=== PATIENT | female | born 1960 | race Caucasian/White ===

== ENCOUNTER → 2017-03-15 | Outpatient (CLI) | payer OTHER ==
--- NOTE | 2017-03-15 17:03 | REP ---
Clinical: Trauma. Fall. Technique: Neutral and frog lateral views of the right hip. Findings: No acute fracture or dislocation. Skeletal structures, joint spaces, and surrounding soft tissues are normal for age. Impression: No acute fracture or dislocation. Signed by Sergio Sanders MD 03/15/2017 04:54 P
--- NOTE | 2017-03-15 17:05 | REP ---
Clinical: Trauma. Fall. Technique: AP, lateral, bilateral oblique and sunrise views of the right knee. Findings: Early moderate tricompartmental degenerative changes include cortical irregularities to the femoral condyles, subtle spurring/early osteophyte formation, subchondral sclerosis. Lateral and sunrise views demonstrate sclerosis along the posterior margin of the patella with lateral spurring. No acute fracture dislocation. No obvious effusion. Impression: Early moderate tricompartmental degenerative changes. No acute fracture dislocation. Signed by Sergio Sanders MD 03/15/2017 04:57 P
== END ==
LOC: M RAD 16:18
PROVIDERS: ATTEND Physician Assistant Medical
DX: M17.11 Unilateral primary osteoarthritis, right knee (principal)

== ENCOUNTER → 2019-10-26 | Outpatient (CLI) | payer MEDICARE, OTHER ==
[~2019-10-26] MED LIST: E-Z-GAS II EFFERVESCENT PACKET (SODIUM BICARB./CITRIC ACID/SIMETHICONE) As Ordered ONE; E-Z-HD 98% w/w 340GM SUSP BTL As Ordered ONE; E-Z-PAQUE 96% w/w SUSP 176GM BTL As Ordered ONE
--- NOTE | 2019-10-26 18:05 | REP ---
UPPER GI AIR CONTRAST AND SMALL BOWEL FOLLOW THROUGH The procedure was performed under the direct supervision of Dr. Vyas. The images were reviewed with Dr. Vyas The executive director of nursing film shows no organomegaly or pathological masses. The intestinal gas pattern is non-specific. Liquid barium and gas producing crystals were given in the erect position as well as liquid barium in the prone oblique position in order to perform a double contrast upper GI examination. Additionally liquid barium was given at the end of the examination in order to perform a small bowel follow through. The oral and pharyngeal stages of deglutition are unremarkable. There are esophageal transport there are tertiary waves demonstrated. There is no esophagitis, stricture or mucosal ring. There is a small sliding-type hiatal hernia. There is gastroesophageal reflux demonstrated to above the level of the nagelica. Within the stomach there are prominent areae gastricae which may represent early gastritis. The duodenal [place] are normally outlined . The mucosal folds are smooth and regular. There is no duodenitis pancreatitis peptic ulcer disease or neoplasm. The visualized portion of the proximal small bowel appears normal in course and caliber. The barium column was followed through the small bowel to the level of the terminal ileum. Small bowel transit time is approximately 1 hour . During fluoroscopy gentle palpation shows all loops are freely movable and pliable. There are no fixed or angulated loops. The small bowel mucosal pattern is normal in course and caliber. There is no transition to suggest a partial small-bowel obstruction. Spot filming of the terminal ileum shows it to be unremarkable. Impression: 1. There is a small sliding-type hiatal hernia with gastroesophageal reflux demonstrated to above the level of the angelica. 2. Tertiary waves. 3. There are prominent areae gastricae within the stomach which may represent early gastritis. 2.9 minutes of fluoro time was utilized for this procedure. Electronically Signed by ANTONI Jay 10/26/2019 04:39 P Electronically Signed by Omega Vyas MD 10/26/2019 05:55 P
== END ==
LOC: M RAD 08:46
PROVIDERS: ATTEND Physician Assistant Medical
DX: R10.84 Generalized abdominal pain (principal); K90.0 Celiac disease; R19.7 Diarrhea, unspecified

== ENCOUNTER → 2021-02-19 | Outpatient (CLI) | payer MEDICARE, OTHER ==
[~2021-02-19] MED LIST changes: +CALC500T68 PO; +D31000TA2 PO; +DRON400T; -E-Z-GAS II EFFERVESCENT PACKET (SODIUM BICARB./CITRIC ACID/SIMETHICONE) As Ordered ONE; -E-Z-HD 98% w/w 340GM SUSP BTL As Ordered ONE; -E-Z-PAQUE 96% w/w SUSP 176GM BTL As Ordered ONE; +MAGN400C PO; +VITA100T59 PO; +ZINC1TAB2 PO
== END ==
LOC: M LABSMTC 10:14
PROVIDERS: ATTEND Anesthesiology
DX: Z01.818 Encounter for other preprocedural examination (principal); Z20.822 Contact with and (suspected) exposure to COVID-19

== ENCOUNTER 2021-02-24 10:31 | Day surgery (SDC) | payer MEDICARE ==
[~2021-02-24] VITALS: Ht 157.5 cm; Wt 72.9 kg
[~2021-02-24 10:31] MED LIST changes: +LIDOCAINE 2% 100MG/5ML SDV (FOR ANES.) As Ordered ONE; +NS 1,000 ML IV ONE; +fentaNYL 100 MCG/2 ML INJECTION (J3010) As Ordered ONE; +propofoL 200 MG/20 ML VIAL As Ordered ONE
[2021-02-24] MEDS ORDERED: PHENYLephrine 500MCG 5ML (100MCG/ML) SYRINGE As Ordered ONE (12:30)
[2021-02-24] MEDS ORDERED: ONDANSETRON 4MG/2ML VIAL As Ordered ONE (12:37)
[2021-02-24] MEDS ORDERED: ePHEDrine SULFATE 25 MG/5 ML(5MG/ML) SYRINGE As Ordered ONE (12:48)
--- NOTE | 2021-02-24 13:04 | ROOR ---
Patient Name: Alma Hong Procedure Date: 02/24/2021 12:05 PM Date of : 1960 Age: 60 Room: [facility] Gender: Female Note Status: Finalized Procedure: Upper GI endoscopy Indications: Follow-up of celiac disease Providers: Jaciel Garces MD Referring MD: LIS Awan PA-C Requesting Provider: Medicines: Monitored Anesthesia Care Complications: No immediate complications. Procedure: Pre-Anesthesia Assessment: - Prior to the procedure, a History and Physical was performed, and patient medications and allergies were reviewed. The patient is competent. The risks and benefits of the procedure and the sedation options and risks were discussed with the patient. All questions were answered and informed consent was obtained. Patient identification and proposed procedure were verified by the physician, the nurse and the anesthesiologist in the procedure room. Mental Status Examination: alert and oriented. Airway Examination: normal oropharyngeal airway and neck mobility. Respiratory Examination: clear to auscultation. CV Examination: normal. Prophylactic Antibiotics: The patient does not require prophylactic antibiotics. Prior Anticoagulants: The patient has taken no previous anticoagulant or antiplatelet agents. ASA Grade Assessment: II - A patient with mild systemic disease. After reviewing the risks and benefits, the patient was deemed in satisfactory condition to undergo the procedure. The anesthesia plan was to use monitored anesthesia care (MAC). Immediately prior to administration of medications, the patient was re-assessed for adequacy to receive sedatives. The heart rate, respiratory rate, oxygen saturations, blood pressure, adequacy of pulmonary ventilation, and response to care were monitored throughout the procedure. The physical status of the patient was re-assessed after the procedure. The Endoscope was introduced through the mouth, and advanced to the second part of duodenum. The upper GI endoscopy was accomplished without difficulty. The patient tolerated the procedure well. Findings: The Z-line was regular and was found 36 cm from the incisors. One non-bleeding superficial gastric ulcer with a clean ulcer base (Jules Class III) was found in the gastric antrum. The lesion was 10 mm in largest dimension. Biopsies were taken with a cold forceps for histology. Biopsies were taken with a cold forceps for Helicobacter pylori testing. Verification of patient identification for the specimen was done by the physician and nurse using the patient's name, date and medical record number. Estimated blood loss was minimal. The duodenal bulb, second portion of the duodenum and third portion of the duodenum were normal. Biopsies for histology were taken with a cold forceps for evaluation of celiac disease. Impression: - Z-line regular, 36 cm from the incisors. - Non-bleeding gastric ulcer with a clean ulcer base (Jules Class III). Biopsied. - Normal duodenal bulb, second portion of the duodenum and third portion of the duodenum. Biopsied. Recommendation: - Patient has a contact number available for emergencies. The signs and symptoms of potential delayed complications were discussed with the patient. Return to normal activities tomorrow. Written discharge instructions were provided to the patient. - High fiber diet. - Continue present medications. - Await pathology results. - Telephone GI clinic for pathology results in 2 weeks. - Return to GI clinic if persistent symptoms or new symptoms. - Return to primary care physician. Procedure Code(s): --- Professional --- 90104, Esophagogastroduodenoscopy, flexible, transoral; with biopsy, single or multiple Diagnosis Code(s): --- Professional --- K25.9, Gastric ulcer, unspecified as acute or chronic, without hemorrhage or perforation K90.0, Celiac disease CPT copyright 2019 [employer]. All rights reserved. The codes documented in this report are preliminary and upon factory maintenance technician review may be revised to meet current compliance requirements. Jaciel Garces MD Jaciel Garces MD 02/24/2021 1:03:42 PM Electronically signed by Jaciel Garces MD Number of Addenda: 0 Note Initiated On: 02/24/2021 12:05 PM Estimated Blood Loss: Estimated blood loss was minimal.
--- NOTE | 2021-02-24 13:09 | ROOR ---
Patient Name: Alma Hong Procedure Date: 02/24/2021 12:12 PM Date of : 1960 Age: 60 Room: [facility] Gender: Female Note Status: Finalized Procedure: Colonoscopy Indications: Screening for colorectal malignant neoplasm Providers: Jaciel Garces MD Referring MD: LIS Awan PA-C Requesting Provider: Medicines: Monitored Anesthesia Care Complications: No immediate complications. Procedure: Pre-Anesthesia Assessment: - Prior to the procedure, a History and Physical was performed, and patient medications and allergies were reviewed. The patient is competent. The risks and benefits of the procedure and the sedation options and risks were discussed with the patient. All questions were answered and informed consent was obtained. Patient identification and proposed procedure were verified by the physician, the nurse and the anesthesiologist in the procedure room. Mental Status Examination: alert and oriented. Airway Examination: normal oropharyngeal airway and neck mobility. Respiratory Examination: clear to auscultation. CV Examination: normal. Prophylactic Antibiotics: The patient does not require prophylactic antibiotics. Prior Anticoagulants: The patient has taken no previous anticoagulant or antiplatelet agents. ASA Grade Assessment: II - A patient with mild systemic disease. After reviewing the risks and benefits, the patient was deemed in satisfactory condition to undergo the procedure. The anesthesia plan was to use monitored anesthesia care (MAC). Immediately prior to administration of medications, the patient was re-assessed for adequacy to receive sedatives. The heart rate, respiratory rate, oxygen saturations, blood pressure, adequacy of pulmonary ventilation, and response to care were monitored throughout the procedure. The physical status of the patient was re-assessed after the procedure. The Colonoscope was introduced through the anus and advanced to the terminal ileum, with identification of the appendiceal orifice and IC valve. The colonoscopy was performed without difficulty. The patient tolerated the procedure well. The quality of the bowel preparation was good. The terminal ileum, ileocecal valve, appendiceal orifice, and rectum were photographed. Scope insertion time was 3 minutes. Scope withdrawal time was 8 minutes. The total duration of the procedure was 11 minutes. Findings: The perianal and digital rectal examinations were normal. The terminal ileum appeared normal. Two sessile polyps were found in the recto-sigmoid colon. The polyps were 4 to 5 mm in size. These polyps were removed with a cold snare. Resection and retrieval were complete. Verification of patient identification for the specimen was done by the physician and nurse using the patient's name, date and medical record number. Estimated blood loss was minimal. Non-bleeding external and internal hemorrhoids were found during retroflexion. The hemorrhoids were medium-sized. Impression: - The examined portion of the ileum was normal. - Two 4 to 5 mm polyps at the recto-sigmoid colon, removed with a cold snare. Resected and retrieved. - Non-bleeding external and internal hemorrhoids. Recommendation: - Patient has a contact number available for emergencies. The signs and symptoms of potential delayed complications were discussed with the patient. Return to normal activities tomorrow. Written discharge instructions were provided to the patient. - High fiber diet. - Continue present medications. - Await pathology results. - Repeat colonoscopy in 5-10 years for surveillance based on pathology results. - Telephone GI clinic for pathology results in 2 weeks. - Return to primary care physician. Procedure Code(s): --- Professional --- 93336, Colonoscopy, flexible; with removal of tumor(s), polyp(s), or other lesion(s) by snare technique Diagnosis Code(s): --- Professional --- Z12.11, Encounter for screening for malignant neoplasm of colon K64.8, Other hemorrhoids K63.5, Polyp of colon CPT copyright 2019 [employer]. All rights reserved. The codes documented in this report are preliminary and upon balance weigher review may be revised to meet current compliance requirements. Jaciel Garces MD Jaciel Garces MD 02/24/2021 1:09:17 PM Electronically signed by Jaciel Garces MD Number of Addenda: 0 Note Initiated On: 02/24/2021 12:12 PM Estimated Blood Loss: Estimated blood loss was minimal.
[2021-02-24 13:30] VITALS: BP 143/67
== END 2021-02-24 13:35 | disposition home or self-care (01) ==
LOC: M OPP 10:31
PROVIDERS: ATTEND Internal Medicine Gastroenterology
DX: Z12.11 Encounter for screening for malignant neoplasm of colon (principal); Z86.010 Personal history of colon polyps; Z80.0 Family history of malignant neoplasm of digestive organs; K63.5 Polyp of colon; K64.8 Other hemorrhoids; K25.9 Gastric ulcer, unspecified as acute or chronic, without hemorrhage or perforation; K90.0 Celiac disease; K21.9 Gastro-esophageal reflux disease without esophagitis; F17.210 Nicotine dependence, cigarettes, uncomplicated; Z88.1 Allergy status to other antibiotic agents; Z88.8 Allergy status to other drugs, medicaments and biological substances; Z91.012 Allergy to eggs; Z91.011 Allergy to milk products
CPT/HCPCS: 43239; 45385; 88305; J2370; J2405; J3010

== ENCOUNTER 2021-07-18 13:29 | Outpatient (CLI) | payer MEDICARE ==
[~2021-07-18] VITALS: Ht 157.5 cm; Wt 72.6 kg
[~2021-07-18 13:29] MED LIST changes: +ALBUTEROL 90 MCG/ACT 8GM HFA INHALER INH PRN; +ALBUTEROL SULFATE 2.5 MG/0.5 ML INH NEB SOLN INH PRN; +EPINEPHrine INJ 1 MG/ML 1ML AMP IM PRN; -LIDOCAINE 2% 100MG/5ML SDV (FOR ANES.) As Ordered ONE; -NS 1,000 ML IV ONE; +NS 1,000 ML IV SCH; +diphenhydrAMINE 50MG/ML VIAL (J1200) IV PRN; -fentaNYL 100 MCG/2 ML INJECTION (J3010) As Ordered ONE; +methylPREDNISolone 125MG 2ML VIAL IV PRN; -propofoL 200 MG/20 ML VIAL As Ordered ONE
[2021-07-18 15:23] VITALS: BP 179/84
[2021-07-18 15:49] VITALS: BP 180/85
[2021-07-18] MEDS ORDERED: diphenhydrAMINE 25MG CAP PO ONE (16:00)
[2021-07-18] MEDS ORDERED: CASIRIVIMAB/IMDEVIMAB 1,200 MG in NS 250 ML IV ONE (16:00)
[2021-07-18] MEDS ORDERED: ACETAMINOPHEN TAB 650MG DOSE (2X325MG) PO ONE (16:00)
[2021-07-18 16:25] VITALS: BP 154/70
[2021-07-18 16:59] VITALS: BP 157/78
[2021-07-18 17:30] VITALS: BP 177/98
[2021-07-18 18:33] VITALS: BP 163/70
== END 2021-07-18 18:40 | disposition home or self-care (01) ==
LOC: M OPCLI4 13:29 → M OPCLI4PR 13:29 → M 4MAIN 14:45 → M OPCLI4 18:40
PROVIDERS: ATTEND Physician Assistant
DX: U07.1 COVID-19 (principal); Z88.1 Allergy status to other antibiotic agents; Z91.011 Allergy to milk products; Z91.012 Allergy to eggs; Z88.8 Allergy status to other drugs, medicaments and biological substances

== ENCOUNTER → 2022-12-17 | Outpatient (CLI) | payer MEDICARE ==
[~2022-12-17] MED LIST changes: -ALBUTEROL 90 MCG/ACT 8GM HFA INHALER INH PRN; -ALBUTEROL SULFATE 2.5 MG/0.5 ML INH NEB SOLN INH PRN; -D31000TA2 PO; -EPINEPHrine INJ 1 MG/ML 1ML AMP IM PRN; +METO1TAB87; +NASA1SPR NARES; -NS 1,000 ML IV SCH; +VITA100093 PO; +VITATAB64 PO; -diphenhydrAMINE 50MG/ML VIAL (J1200) IV PRN; -methylPREDNISolone 125MG 2ML VIAL IV PRN
== END ==
LOC: M WHC 10:20
PROVIDERS: ATTEND Physician Assistant
DX: Z12.31 Encounter for screening mammogram for malignant neoplasm of breast (principal); Z13.820 Encounter for screening for osteoporosis

== ENCOUNTER → 2022-12-28 | Outpatient (REF) | payer MEDICARE ==
[2022-12-28 13:34] LABS: APPEARANCE, URINE CLEAR (CLEAR); BACTERIA, URINE AUTO NEGATIVE (NEGATIVE); BILIRUBIN, URINE AUTO NEGATIVE (NEGATIVE); BLOOD, URINE BLOOD 1+ (NEGATIVE); COLOR, URINE STRAW (YELLOW); GLUCOSE, URINE (UA) AUTO NEGATIVE (NEGATIVE); KETONE, URINE AUTO NEGATIVE (NEGATIVE); LEUKOCYTE ESTERASE, URINE AUTO 1+ (NEGATIVE); NITRITE, URINE AUTO NEGATIVE (NEGATIVE); PROTEIN, URINE AUTO NEGATIVE (NEGATIVE); RBC, URINE AUTO 2 /HPF (0-3); SPECIFIC GRAVITY URINE AUTO 1.008 (1.002-1.035); SQUAMOUS EPITHELIAL CELL UR AU 2 /HPF (0-6); UROBILINOGEN, URINE AUTO 0.2 mg/dL (0.0-2.0); WBC, URINE AUTO 23 /HPF (0-3)
== END ==
LOC: M SFHCPLAZ 13:14
PROVIDERS: ATTEND Physician Assistant
DX: R30.0 Dysuria (principal)

== ENCOUNTER 2023-01-21 07:03 | Emergency (ER) | payer MEDICARE ==
[~2023-01-21] VITALS: Ht 157.5 cm; Wt 77.0 kg
[2023-01-21] MEDS ORDERED: NS 500 ML IV ONE (07:20)
[2023-01-21 07:45] LABS: BASO # 0.1 10^3/uL (0.0-0.2); BASO % 0.9 % (0.0-1.0); EOS # 0.3 10^3/uL (0.0-0.5); EOS % 2.4 % (0.0-3.0); HEMATOCRIT 44.1 % (36.0-47.0); HEMOGLOBIN 14.7 g/dl (12.0-15.5); LYMPH # 2.7 10^3/uL (1.5-5.0); LYMPH % 21.7 % (24.0-44.0); MEAN CORPUSCULAR HEMOGLOBIN 32.5 pg (27.0-33.0); MEAN CORPUSCULAR HGB CONC 33.3 g/dl (32.0-36.5); MEAN CORPUSCULAR VOLUME 97.4 fl (80.0-96.0); MONO # 0.6 10^3/uL (0.0-0.8); MONO % 4.7 % (2.0-8.0); NEUTROPHILS # 8.6 10^3/uL (1.5-8.5); NEUTROPHILS % 69.9 % (36.0-66.0); PLATELET COUNT, AUTOMATED 306 10^3/uL (150-450); RED BLOOD COUNT 4.53 10^6/uL (4.00-5.40); WHITE BLOOD COUNT 12.3 10^3/uL (4.0-10.0)
[2023-01-21 08:05] LABS: LIPASE 38 U/L (12-53)
[2023-01-21 08:10] LABS: ALBUMIN 3.6 G/DL (3.2-5.2); ALKALINE PHOSPHATASE 72 U/L (46-116); ALT/SGPT 13 U/L (7.0-40); AST/SGOT 12 U/L (<34); BILIRUBIN,DIRECT 0.2 MG/DL (<0.4); BILIRUBIN,TOTAL 0.8 MG/DL (0.3-1.2); CK-MB VALUE MASS < 1.0 NG/ML (<3.6); FREE T4 1.34 NG/DL (0.89-1.76); THYROID STIMULATING HORMONE 1.772 uIU/ML (0.55-4.78); TOTAL PROTEIN 6.7 G/DL (5.7-8.2)
[2023-01-21 08:13] LABS: RSV AMPLIFICATION NEGATIVE (NEGATIVE)
[2023-01-21 08:14] LABS: CPK CREATINE PHOSPHOKINASE 35 U/L (34-145); MB/CK RELATIVE INDEX 2.85 (< OR =4)
[2023-01-21] MEDS ORDERED: ISOVUE-370 76% 100ML VIAL As Ordered ONE (09:22)
[2023-01-21 11:08] LABS: CK-MB VALUE MASS < 1.0 NG/ML (<3.6); CPK CREATINE PHOSPHOKINASE 33 U/L (34-145); MB/CK RELATIVE INDEX 3.03 (< OR =4)
[2023-01-21] MEDS ORDERED: SPIRONOLACTONE 12.5MG PER 1/2 TABLET PO STA (12:49)
[2023-01-21] MEDS ORDERED: DIGOXIN 0.25 MG TAB PO ONE (12:50)
[2023-01-21] MEDS ORDERED: CHLORTHALIDONE 12.5MG PER 1/2 TABLET PO ONE (12:50)
[2023-01-21] MEDS ORDERED: SPIR-10 PO (13:07)
[2023-01-21] MEDS ORDERED: DIGO0.253 PO (13:07)
[2023-01-21] MEDS ORDERED: CHLO125TA PO (13:08)
[2023-01-21 13:35] VITALS: BP 165/90
[2023-01-22] MEDS ORDERED: ATIV1TAB10 PO (03:20)
== END 2023-01-21 13:42 | disposition home or self-care (01) ==
LOC: M ED 07:03
DX: R00.2 Palpitations (principal); I10 Essential (primary) hypertension; I44.4 Left anterior fascicular block; E78.5 Hyperlipidemia, unspecified; F17.200 Nicotine dependence, unspecified, uncomplicated; Z88.1 Allergy status to other antibiotic agents; Z91.012 Allergy to eggs; Z91.011 Allergy to milk products; Z79.52 Long term (current) use of systemic steroids; Z79.899 Other long term (current) drug therapy
CPT/HCPCS: 71045; 71275; 80047; 80076; 82550; 82553; 83690; 83735; 84439; 84443; 84484; 85025; 87631; 93005; 93041; 94760; 96360; 99285; Q9967

== ENCOUNTER 2023-01-22 01:11 | Emergency (ER) | payer MEDICARE ==
[~2023-01-22] VITALS: Ht 157.5 cm; Wt 72.7 kg
[~2023-01-22 01:11] MED LIST changes: +CHLO125TA PO; +DIGO0.253 PO; +SPIR-10 PO
[2023-01-22 01:55] LABS: BASO # 0.1 10^3/uL (0.0-0.2); BASO % 0.9 % (0.0-1.0); EOS # 0.3 10^3/uL (0.0-0.5); EOS % 2.3 % (0.0-3.0); HEMATOCRIT 47.7 % (36.0-47.0); HEMOGLOBIN 15.9 g/dl (12.0-15.5); LYMPH # 3.3 10^3/uL (1.5-5.0); LYMPH % 27.2 % (24.0-44.0); MEAN CORPUSCULAR HEMOGLOBIN 32.6 pg (27.0-33.0); MEAN CORPUSCULAR HGB CONC 33.3 g/dl (32.0-36.5); MEAN CORPUSCULAR VOLUME 97.7 fl (80.0-96.0); MONO # 0.7 10^3/uL (0.0-0.8); MONO % 5.8 % (2.0-8.0); NEUTROPHILS # 7.7 10^3/uL (1.5-8.5); NEUTROPHILS % 63.5 % (36.0-66.0); PLATELET COUNT, AUTOMATED 279 10^3/uL (150-450); RED BLOOD COUNT 4.88 10^6/uL (4.00-5.40); WHITE BLOOD COUNT 12.1 10^3/uL (4.0-10.0)
[2023-01-22] MEDS ORDERED: LORazepam 2 MG/ML 1ML VIAL IV STA (02:12)
[2023-01-22 02:19] LABS: BLOOD UREA NITROGEN 13 MG/DL (9-23); CALCIUM LEVEL 8.8 MG/DL (8.3-10.6); CARBON DIOXIDE LEVEL 20 MMOL/L (20-31); CHLORIDE LEVEL 107 MMOL/L (98-107); CREATININE FOR GFR 1.18 MG/DL (0.55-1.30); GLOMERULAR FILTRATION RATE 49.1 (>45); GLUCOSE, FASTING 111 MG/DL (74-106); POTASSIUM SERUM 4.3 MMOL/L (3.5-5.1); SODIUM LEVEL 136 MMOL/L (136-145)
[2023-01-22 02:27] LABS: CK-MB VALUE MASS < 1.0 NG/ML (<3.6)
[2023-01-22 02:37] LABS: INR 0.83; PROTHROMBIN TIME 11.6 SECONDS (12.5-14.5)
[2023-01-22 02:38] LABS: CPK CREATINE PHOSPHOKINASE 106 U/L (34-145); MB/CK RELATIVE INDEX 0.94 (< OR =4)
[2023-01-22] MEDS ORDERED: ATIV1TAB10 PO (03:20)
[2023-01-22 03:31] VITALS: BP 145/78
== END 2023-01-22 03:32 | disposition home or self-care (01) ==
LOC: M ED 01:11
DX: F41.1 Generalized anxiety disorder (principal); R00.2 Palpitations; E78.5 Hyperlipidemia, unspecified; I49.3 Ventricular premature depolarization; I44.4 Left anterior fascicular block; F12.10 Cannabis abuse, uncomplicated; F17.200 Nicotine dependence, unspecified, uncomplicated; Z88.1 Allergy status to other antibiotic agents; Z91.012 Allergy to eggs; Z91.011 Allergy to milk products; Z79.52 Long term (current) use of systemic steroids; Z79.899 Other long term (current) drug therapy
CPT/HCPCS: 71045; 80048; 82550; 82553; 84484; 85025; 85610; 93005; 93041; 94760; 96374; 99284; J2060

== ENCOUNTER 2023-01-22 10:54 | Emergency (ER) | payer MEDICARE ==
[~2023-01-22] VITALS: Ht 157.5 cm; Wt 71.2 kg
[~2023-01-22 10:54] MED LIST changes: +ATIV1TAB10 PO
[2023-01-22] MEDS ORDERED: CHLORTHALIDONE 12.5MG PER 1/2 TABLET PO STA (13:05)
[2023-01-22] MEDS ORDERED: SPIRONOLACTONE 12.5MG PER 1/2 TABLET PO STA (13:05)
[2023-01-22] MEDS ORDERED: LORazepam 0.5 MG TAB PO STA (13:05)
[2023-01-22] MEDS ORDERED: DIGOXIN 0.25 MG TAB PO STA (13:05)
[2023-01-22 15:56] VITALS: BP 180/78
== END 2023-01-22 16:08 | disposition home or self-care (01) ==
LOC: M ED 10:54
DX: F41.1 Generalized anxiety disorder (principal); R00.2 Palpitations; I10 Essential (primary) hypertension; I44.4 Left anterior fascicular block; R00.0 Tachycardia, unspecified; F17.200 Nicotine dependence, unspecified, uncomplicated; F12.10 Cannabis abuse, uncomplicated; Z88.1 Allergy status to other antibiotic agents; Z91.012 Allergy to eggs; Z91.011 Allergy to milk products; Z79.899 Other long term (current) drug therapy

== ENCOUNTER → 2023-01-30 | Outpatient (CLI) | payer MEDICARE ==
[2023-01-30 11:10] LABS: DIGOXIN LEVEL 1.6 NG/ML (0.8-2.0)
[2023-01-30 11:11] LABS: ALBUMIN 3.9 G/DL (3.2-5.2); BILIRUBIN,TOTAL 0.7 MG/DL (0.3-1.2); CALCIUM LEVEL 9.1 MG/DL (8.3-10.6); CREATININE FOR GFR 1.13 MG/DL (0.55-1.30); GLOMERULAR FILTRATION RATE 51.6 (>45); POTASSIUM SERUM 4.6 MMOL/L (3.5-5.1); TOTAL PROTEIN 7.3 G/DL (5.7-8.2)
== END ==
LOC: M PLALAB 08:53
PROVIDERS: ATTEND Physician Assistant
DX: I47.1 Supraventricular tachycardia (principal)

== ENCOUNTER 2023-04-18 11:57 | Emergency (ER) | payer MEDICARE ==
[~2023-04-18] VITALS: Ht 157.5 cm; Wt 68.2 kg
[2023-04-18] MEDS ORDERED: AMLO1TAB24 PO (12:37)
[2023-04-18] MEDS ORDERED: DRON400T PO (12:37)
[2023-04-18 13:23] LABS: BASO # 0.1 10^3/uL (0.0-0.2); BASO % 0.9 % (0.0-1.0); EOS # 0.3 10^3/uL (0.0-0.5); EOS % 2.5 % (0.0-3.0); HEMATOCRIT 41.9 % (36.0-47.0); HEMOGLOBIN 13.7 g/dl (12.0-15.5); LYMPH # 2.1 10^3/uL (1.5-5.0); LYMPH % 19.5 % (24.0-44.0); MEAN CORPUSCULAR HEMOGLOBIN 31.9 pg (27.0-33.0); MEAN CORPUSCULAR HGB CONC 32.7 g/dl (32.0-36.5); MEAN CORPUSCULAR VOLUME 97.7 fl (80.0-96.0); MONO # 0.5 10^3/uL (0.0-0.8); MONO % 4.3 % (2.0-8.0); NEUTROPHILS # 7.8 10^3/uL (1.5-8.5); NEUTROPHILS % 72.4 % (36.0-66.0); PLATELET COUNT, AUTOMATED 337 10^3/uL (150-450); RED BLOOD COUNT 4.29 10^6/uL (4.00-5.40); WHITE BLOOD COUNT 10.8 10^3/uL (4.0-10.0)
[2023-04-18 13:38] LABS: BLOOD UREA NITROGEN 14 MG/DL (9-23); CALCIUM LEVEL 9.8 MG/DL (8.3-10.6); CARBON DIOXIDE LEVEL 25 MMOL/L (20-31); CHLORIDE LEVEL 110 MMOL/L (98-107); CK-MB VALUE MASS < 1.0 NG/ML (<3.6); CPK CREATINE PHOSPHOKINASE 44 U/L (34-145); CREATININE FOR GFR 1.14 MG/DL (0.55-1.30); GLOMERULAR FILTRATION RATE 51.1 (>45); GLUCOSE, FASTING 89 MG/DL (74-106); MB/CK RELATIVE INDEX 2.27 (< OR =4); POTASSIUM SERUM 4.3 MMOL/L (3.5-5.1); SODIUM LEVEL 140 MMOL/L (136-145)
[2023-04-18 14:29] LABS: CK-MB VALUE MASS < 1.0 NG/ML (<3.6)
[2023-04-18 14:31] LABS: CPK CREATINE PHOSPHOKINASE 41 U/L (34-145); MB/CK RELATIVE INDEX 2.43 (< OR =4)
[2023-04-18 15:25] LABS: LIPASE 35 U/L (12-53)
[2023-04-18 15:28] LABS: ALBUMIN 3.6 G/DL (3.2-5.2); ALKALINE PHOSPHATASE 77 U/L (46-116); ALT/SGPT 13 U/L (7.0-40); AST/SGOT 10 U/L (<34); BILIRUBIN,DIRECT 0.2 MG/DL (<0.4); BILIRUBIN,TOTAL 0.6 MG/DL (0.3-1.2); FREE T4 1.25 NG/DL (0.89-1.76); THYROID STIMULATING HORMONE 1.444 uIU/ML (0.55-4.78); TOTAL PROTEIN 6.7 G/DL (5.7-8.2)
[2023-04-18 16:00] VITALS: BP 148/66; TEMP 98.6; O2SAT 96
== END 2023-04-18 16:06 | disposition home or self-care (01) ==
LOC: EDBD 11:57 → M ED 11:57
DX: R07.9 Chest pain, unspecified (principal); I44.4 Left anterior fascicular block; F41.9 Anxiety disorder, unspecified; F17.200 Nicotine dependence, unspecified, uncomplicated; Z88.0 Allergy status to penicillin; Z88.1 Allergy status to other antibiotic agents; Z91.012 Allergy to eggs; Z91.011 Allergy to milk products; Z79.899 Other long term (current) drug therapy

== ENCOUNTER → 2023-05-31 | Outpatient (CLI) | payer MEDICARE ==
[~2023-05-31] MED LIST changes: +AMLO1TAB24 PO; +DRON400T PO
[2023-05-31 17:07] LABS: ALBUMIN 3.8 G/DL (3.2-5.2); BASO # 0.1 10^3/uL (0.0-0.2); BASO % 0.8 % (0.0-1.0); BILIRUBIN,TOTAL 0.4 MG/DL (0.3-1.2); CALCIUM LEVEL 9.4 MG/DL (8.3-10.6); CREATININE FOR GFR 1.19 MG/DL (0.55-1.30); EOS # 0.3 10^3/uL (0.0-0.5); EOS % 2.7 % (0.0-3.0); GLOMERULAR FILTRATION RATE 48.6 (>45); HEMATOCRIT 44.4 % (36.0-47.0); HEMOGLOBIN 14.4 g/dl (12.0-15.5); LYMPH # 2.8 10^3/uL (1.5-5.0); LYMPH % 28.7 % (24.0-44.0); MAGNESIUM LEVEL 2.4 MG/DL (1.8-2.4); MEAN CORPUSCULAR HEMOGLOBIN 32.1 pg (27.0-33.0); MEAN CORPUSCULAR HGB CONC 32.4 g/dl (32.0-36.5); MEAN CORPUSCULAR VOLUME 98.9 fl (80.0-96.0); MONO # 0.6 10^3/uL (0.0-0.8); MONO % 5.9 % (2.0-8.0); NEUTROPHILS # 6.1 10^3/uL (1.5-8.5); NEUTROPHILS % 61.6 % (36.0-66.0); PLATELET COUNT, AUTOMATED 347 10^3/uL (150-450); POTASSIUM SERUM 4.7 MMOL/L (3.5-5.1); RED BLOOD COUNT 4.49 10^6/uL (4.00-5.40); WHITE BLOOD COUNT 9.9 10^3/uL (4.0-10.0)
== END ==
LOC: M PLALAB 15:45
PROVIDERS: ATTEND Physician Assistant
DX: R25.1 Tremor, unspecified (principal); R07.89 Other chest pain; Z86.79 Personal history of other diseases of the circulatory system; H81.10 Benign paroxysmal vertigo, unspecified ear

== ENCOUNTER → 2024-07-08 | Outpatient (CLI) | payer MEDICARE ==
[2024-07-08 18:41] LABS: BASO # 0.1 10^3/uL (0.0-0.2); BASO % 0.9 % (0.0-1.0); EOS # 0.5 10^3/uL (0.0-0.5); EOS % 4.9 % (0.0-3.0); LYMPH # 2.4 10^3/uL (1.5-5.0); MEAN CORPUSCULAR HGB CONC 32.6 g/dl (32.0-36.5); MEAN CORPUSCULAR VOLUME 101.1 fl (80.0-96.0); MONO # 0.6 10^3/uL (0.0-0.8); MONO % 5.8 % (2.0-8.0); NEUTROPHILS # 6.1 10^3/uL (1.5-8.5); PLATELET COUNT, AUTOMATED 326 10^3/uL (150-450); RED BLOOD COUNT 4.55 10^6/uL (4.00-5.40); WHITE BLOOD COUNT 9.7 10^3/uL (4.0-10.0)
[2024-07-08 19:15] LABS: ALBUMIN 3.6 G/DL (3.2-5.2); BILIRUBIN,TOTAL 0.6 MG/DL (0.3-1.2); CALCIUM LEVEL 9.5 MG/DL (8.3-10.6); CREATININE FOR GFR 1.33 MG/DL (0.55-1.30); GLOMERULAR FILTRATION RATE 42.6 (>45); TOTAL PROTEIN 7.2 G/DL (5.7-8.2)
[2024-07-08 19:17] LABS: HEMOGLOBIN A1c 5.7 % (4.0-6.0)
== END ==
LOC: M PLALAB 16:07
PROVIDERS: ATTEND Physician Assistant
DX: R73.09 Other abnormal glucose (principal); I10 Essential (primary) hypertension

== ENCOUNTER 2024-08-20 14:59 | Emergency (ER) | payer MEDICARE ==
[~2024-08-20] VITALS: Ht 157.5 cm; Wt 72.7 kg
[2024-08-20] MEDS ORDERED: LATA1DRO (15:14)
[2024-08-20 16:33] LABS: BASO # 0.1 10^3/uL (0.0-0.2); BASO % 0.8 % (0.0-1.0); EOS # 0.4 10^3/uL (0.0-0.5); EOS % 3.5 % (0.0-3.0); HEMATOCRIT 45.1 % (36.0-47.0); LYMPH # 2.2 10^3/uL (1.5-5.0); LYMPH % 21.4 % (24.0-44.0); MEAN CORPUSCULAR HEMOGLOBIN 33.9 pg (27.0-33.0); MEAN CORPUSCULAR HGB CONC 33.3 g/dl (32.0-36.5); MONO # 0.5 10^3/uL (0.0-0.8); MONO % 5.1 % (2.0-8.0); NEUTROPHILS % 68.8 % (36.0-66.0); PLATELET COUNT, AUTOMATED 338 10^3/uL (150-450); RED BLOOD COUNT 4.42 10^6/uL (4.00-5.40); WHITE BLOOD COUNT 10.2 10^3/uL (4.0-10.0)
[2024-08-20 16:40] LABS: LIPASE 38 U/L (12-53)
[2024-08-20 16:42] LABS: ALBUMIN 3.5 G/DL (3.2-5.2); ALKALINE PHOSPHATASE 105 U/L (35-104); ALT/SGPT 14 U/L (7.0-40); AST/SGOT 12 U/L (<34); BILIRUBIN,DIRECT < 0.1 MG/DL (<0.4); BILIRUBIN,TOTAL 0.4 MG/DL (0.3-1.2); BLOOD UREA NITROGEN 17 MG/DL (9-23); CALCIUM LEVEL 9.3 MG/DL (8.3-10.6); CARBON DIOXIDE LEVEL 28 MMOL/L (20-31); CHLORIDE LEVEL 109 MMOL/L (98-107); CK-MB VALUE MASS < 1.0 NG/ML (<3.6); CREATININE FOR GFR 1.35 MG/DL (0.55-1.30); GLOMERULAR FILTRATION RATE 41.9 (>45); GLUCOSE, FASTING 115 MG/DL (74-106); MAGNESIUM LEVEL 2.4 MG/DL (1.8-2.4); POTASSIUM SERUM 4.6 MMOL/L (3.5-5.1); SODIUM LEVEL 140 MMOL/L (136-145); TOTAL PROTEIN 7.5 G/DL (5.7-8.2)
[2024-08-20 16:43] LABS: THYROID STIMULATING HORMONE 1.762 uIU/ML (0.55-4.78)
[2024-08-20 16:44] LABS: FREE T4 1.32 NG/DL (0.89-1.76)
[2024-08-20 16:45] LABS: CPK CREATINE PHOSPHOKINASE 35 U/L (34-145); MB/CK RELATIVE INDEX 2.85 (< OR =4)
[2024-08-20 17:49] LABS: CK-MB VALUE MASS < 1.0 NG/ML (<3.6)
[2024-08-20 17:50] LABS: CPK CREATINE PHOSPHOKINASE 34 U/L (34-145); MB/CK RELATIVE INDEX 2.94 (< OR =4)
[2024-08-20 19:06] VITALS: BP 140/71; TEMP 98.1; O2SAT 95
== END 2024-08-20 19:05 | disposition home or self-care (01) ==
LOC: M ED 14:59
DX: R00.2 Palpitations (principal); I10 Essential (primary) hypertension; I44.4 Left anterior fascicular block; F17.200 Nicotine dependence, unspecified, uncomplicated; Z79.899 Other long term (current) drug therapy; Z88.1 Allergy status to other antibiotic agents; Z91.012 Allergy to eggs; Z88.8 Allergy status to other drugs, medicaments and biological substances

== ENCOUNTER → 2024-09-14 | Outpatient (REF) | payer MEDICARE ==
[~2024-09-14] MED LIST changes: +LATA1DRO
[2024-09-15 18:20] LABS: TOTAL PROTEIN,RANDOM URINE 14.4 MG/DL (0.0-14.0)
[2024-09-15 18:24] LABS: PERCENT SATURATION 13.9 % (13.2-45.0)
[2024-09-15 18:26] LABS: CREATININE,RANDOM URINE 132.3 MG/DL; FERRITIN 47.6 NG/ML (7.3-270.7)
[2024-09-17 07:38] LABS: PROTEIN, TOTAL SO 6.9 g/dL (6.1-8.1)
== END ==
LOC: M LAB REF 17:01
PROVIDERS: ATTEND Internal Medicine Nephrology
DX: N18.31 Chronic kidney disease, stage 3a (principal); D63.1 Anemia in chronic kidney disease

== ENCOUNTER → 2024-10-20 | Outpatient (REF) | payer MEDICARE | LOC: M SFHCPLAZ 10:43 | PROVIDERS: ATTEND Family Medicine | DX: R53.83 Other fatigue (principal) ==

== ENCOUNTER → 2024-10-20 | Outpatient (CLI) | payer MEDICARE ==
[2024-10-20 13:19] LABS: BASO # 0.1 10^3/uL (0.0-0.2); BASO % 0.8 % (0.0-1.0); EOS # 0.3 10^3/uL (0.0-0.5); EOS % 2.6 % (0.0-3.0); LYMPH # 1.9 10^3/uL (1.5-5.0); LYMPH % 19.7 % (24.0-44.0); MEAN CORPUSCULAR HEMOGLOBIN 33.8 pg (27.0-33.0); MEAN CORPUSCULAR HGB CONC 32.6 g/dl (32.0-36.5); MEAN CORPUSCULAR VOLUME 103.6 fl (80.0-96.0); MONO # 0.5 10^3/uL (0.0-0.8); MONO % 5.4 % (2.0-8.0); NEUTROPHILS # 6.9 10^3/uL (1.5-8.5); NEUTROPHILS % 71.2 % (36.0-66.0); PLATELET COUNT, AUTOMATED 326 10^3/uL (150-450); RED BLOOD COUNT 4.44 10^6/uL (4.00-5.40); WHITE BLOOD COUNT 9.6 10^3/uL (4.0-10.0)
[2024-10-20 13:30] LABS: ALBUMIN 3.6 G/DL (3.2-5.2); BILIRUBIN,TOTAL 0.7 MG/DL (0.3-1.2); CALCIUM LEVEL 9.4 MG/DL (8.3-10.6); CREATININE FOR GFR 1.26 MG/DL (0.55-1.30); GLOMERULAR FILTRATION RATE 45.2 (>45); TOTAL PROTEIN 7.4 G/DL (5.7-8.2)
[2024-10-20 13:31] LABS: THYROID STIMULATING HORMONE 1.945 uIU/ML (0.55-4.78)
[2024-10-20 13:32] LABS: FREE T4 1.45 NG/DL (0.89-1.76)
== END ==
LOC: M PLALAB 11:19
DX: R53.83 Other fatigue (principal)

== ENCOUNTER → 2024-12-21 | Outpatient (CLI) | payer MEDICARE | LOC: M RAD 08:34 | PROVIDERS: ATTEND Internal Medicine Nephrology | DX: I12.9 Hypertensive chronic kidney disease with stage 1 through stage 4 chronic kidney disease, or unspecified chronic kidney disease (principal); N18.31 Chronic kidney disease, stage 3a; N28.1 Cyst of kidney, acquired ==

== ENCOUNTER → 2025-01-11 | Outpatient (CLI) | payer MEDICARE | LOC: M WHC 19:32 | PROVIDERS: ATTEND Student in an Organized Health Care Education/Training Program | DX: Z12.31 Encounter for screening mammogram for malignant neoplasm of breast (principal); Z53.9 Procedure and treatment not carried out, unspecified reason ==

== ENCOUNTER → 2025-01-14 | Outpatient (CLI) | payer MEDICARE | LOC: M WHC 12:24 | DX: Z12.31 Encounter for screening mammogram for malignant neoplasm of breast (principal) ==

== ENCOUNTER → 2025-03-10 | Outpatient (REF) | payer MEDICARE | LOC: M SFHCPLAZ 15:42 | PROVIDERS: ATTEND Student in an Organized Health Care Education/Training Program | DX: Z53.9 Procedure and treatment not carried out, unspecified reason (principal) ==

== ENCOUNTER → 2025-04-28 | Outpatient (REF) | payer MEDICARE ==
[2025-04-30 07:28] LABS: PROTEIN, TOTAL SO 6.7 g/dL (6.1-8.1)
[2025-05-03 14:17] LABS: FREE KAPPA LIGHT CHAINS SERUM 37.3 mg/L (3.3-19.4); FREE LAMBDA LIGHT CHAINS SERUM 25.6 mg/L (5.7-26.3); KAPPA/LAMBDA RATIO SERUM 1.46 (0.26-1.65)
[2025-05-04 06:22] LABS: ALBUMIN SO 3.8 g/dL (3.8-4.8); ALPHA 1 GLOBULINS SO 0.3 g/dL (0.2-0.3); ALPHA 2 GLOBULINS SO 0.6 g/dL (0.5-0.9); BETA 2 GLOBULIN SO 0.6 g/dL (0.2-0.5); BETA GLOBULIN SO 0.5 g/dL (0.4-0.6); GAMMA GLOBULINS SO 0.9 g/dL (0.8-1.7)
== END ==
LOC: M LAB REF 17:29
PROVIDERS: ATTEND Internal Medicine Nephrology
DX: N18.31 Chronic kidney disease, stage 3a (principal)